=== PATIENT | female | born 1945 | race Caucasian/White ===

== ENCOUNTER 2020-02-29 22:46 | Inpatient (IN) | payer MEDICARE, BC ==
[~2020-02-29] VITALS: Ht 160 cm; Wt 61.9 kg
[2020-03-01] MEDS ORDERED: CYMBALTA60 MG ORAL (02:49)
[2020-03-01] MEDS ORDERED: BACTRIM DS TAB1 EAC1 ORAL (02:49)
[2020-03-01] MEDS ORDERED: NAMENDA10 MG ORAL (02:54)
[2020-03-01] MEDS ORDERED: ESTRACE1 MG ORAL (02:54)
[2020-03-01] MEDS ORDERED: FERROUS SULFAT325 MG ORAL (02:54)
[2020-03-01] MEDS ORDERED: IMITREX50 MG ORAL (02:54)
[2020-03-01] MEDS ORDERED: NORCO 10-325 T1 EACH ORAL (02:54)
[2020-03-01] MEDS ORDERED: ATIVAN1 MG ORAL (02:54)
[2020-03-01] MEDS ORDERED: FOLIC ACID1 MG ORAL (02:54)
[2020-03-01] MEDS ORDERED: MELATONIN 10 M1 EACH ORAL (02:54)
[2020-03-01] MEDS ORDERED: HYDROcodone/Acetamin 10/325 tab ORAL PRN (03:15)
[2020-03-01] MEDS ORDERED: SUMAtriptan 50mg tab ORAL PRN (03:15)
[2020-03-01 04:00] VITALS: BP 111/61
[2020-03-01] MEDS ORDERED: LORazepam 1mg tab ORAL ONE (04:00)
[2020-03-01] MEDS: Heparin 5000 units/ml inj SUBQ SCH ×3 (06:00→21:23)
[2020-03-01 07:42] LABS: BASOPHILS % (AUTO) 0.7 % (0.0-2.0); EOSINOPHILS % (AUTO) 1.2 % (0.0-3.0); HEMATOCRIT 37.2 % (37.0-47.0); HEMOGLOBIN 12.2 G/DL (12.0-16.0); LYMPHOCYTES % (AUTO) 29.8 % (20.0-45.0); MEAN CORPUSCULAR VOLUME 103 FL (80-99); MONOCYTES % (AUTO) 8.1 % (1.0-10.0); NEUTROPHILS % (AUTO) 60.3 % (45.0-75.0); PLATELET COUNT 341 K/UL (150-450); RED BLOOD COUNT 3.61 M/UL (4.20-5.40); RED CELL DISTRIBUTION WIDTH 14.9 % (11.6-14.8); WHITE BLOOD COUNT 13.8 K/UL (4.8-10.8)
[2020-03-01 07:57] LABS: ALANINE AMINOTRANSFERASE 24 U/L (12-78); ALBUMIN 3.3 G/DL (3.4-5.0); ALBUMIN/GLOBULIN RATIO 1.1 (1.0-2.7); ALKALINE PHOSPHATASE 63 U/L (46-116); ANION GAP 10 mmol/L (5-15); ASPARTATE AMINO TRANSFERASE 17 U/L (15-37); BILIRUBIN,TOTAL 0.2 MG/DL (0.2-1.0); BLOOD UREA NITROGEN 24 mg/dL (7-18); CALCIUM 8.9 MG/DL (8.5-10.1); CARBON DIOXIDE 28 MMOL/L (21-32); CHLORIDE 103 MMOL/L (98-107); CHOLESTEROL 247 MG/DL (< 200); CREATININE 1.4 MG/DL (0.55-1.30); HDL CHOLESTEROL 70 MG/DL (40-60); PHOSPHORUS 4.1 MG/DL (2.5-4.9); POTASSIUM 4.3 MMOL/L (3.5-5.1); SODIUM 140 MMOL/L (136-145); TRIGLYCERIDES 267 MG/DL (30-150)
[2020-03-01 08:00] VITALS: BP 142/56
[2020-03-01] MEDS: DULoxetine 30mg cap ORAL SCH ×2 (10:03→17:08)
[2020-03-01] MEDS: Memantine 10mg tab ORAL SCH ×2 (10:03→17:08)
[2020-03-01] MEDS: Aspirin Baby 81mg ORAL SCH (10:03)
[2020-03-01] MEDS: Bactrim-DS 1 tab ORAL SCH ×2 (10:03→21:02)
[2020-03-01 12:00] VITALS: BP 115/73
--- NOTE | 2020-03-01 12:12 | Diagnostic Imaging Report ---
EXAM: MRI MRI Brain no Contrast COMPARISON: None HISTORY: Headache. Right hand numbness and weakness. TECHNIQUE: MR scan of the brain includes sagittal T1, axial T1, T2, FLAIR, diffusion-weighted and gradient sequences. FINDINGS: There is no acute infarct, hemorrhage, mass effect or shift. Ventricles and cisterns appear unremarkable. Brainstem and posterior fossa appear unremarkable. The sella and parasellar regions are normal. Normal flow voids identified in the carotid siphons. Sinuses, mastoid air cells and bony calvarium are intact. IMPRESSION: NO ACUTE INTRACRANIAL ABNORMALITY.
--- NOTE | 2020-03-01 13:06 | Neurology Progress Note ---
Interim History Interim History Complaints: here for numbness right UE Interim History HPI 74 y/o F with PMHx of TIA, kidney stones, migraines, peripheral neuropathy(wrk up in progress) who was BIBA to [facility] due to right hand weakness to rule out new onset stroke. pt was at her hoe when she suddenly started to have numbness and weakness in her RUE. Pt had difficulty with picking up items and dropping items. No issues with language although. This has never happened before and she is not taking ASA. The symptoms improved after [address] was negative. She has No other numbness weakness or tingling in her body. No facial weakness no Difficulty swallowing No headache No nausea No vomiting. pt just had NCS adn EMG which did not show any neuropathy in the RUE or Cervical radiculoapthy. Past Medical History Active Ambulatory Problems Adxetaayn91/02/2019Age-related osteoporosis without current pathological fracture 07/12/2017 Shoulder pain 05/11/2018 Rib pain 05/11/2018 Seronegative rheumatoid arthritis 07/12/2017 Polyneuropathy 05/14/2018 Fibromyalgia 07/12/2017 Tachycardia 05/14/2018 No smoking drinking or drugs Allegies :Vand , compazine , levoquin, tetracycline Fam hx : RA No smoking drinking or drugs General: Lying in bed, well-nourished, well-developed Head and neck: Normocephalic,atraumatic. Supple General: Lying in bed, well-nourished, well-developed Head and neck: Normocephalic,atraumatic. Supple+ epistaxis CARDIOVASCULAR: pedal pulses presentLUNGS: non labored breathing ABDOMEN: Soft EXTREMITIES: No cyanosis SKIN: No rashes General neuro exam Mental statusMemory: nl repitition, short-term recall, able to give full history Language: receptive and expressive language intactSpontanous speech intact , able to name objects, comprehends commands, able to repeat no if ands or but, able to read with good comprehension Alert and oriented x3.Language Cranial nerve 2: Clear visual acuity. Cranial nerves 3, 4, 6: Extraocular muscles intact. No Horizontal Nystagmus or vertical nystagmus Cranial nerve 5: Sensation normal bilaterally. Normal jaw strength. Cranial nerve 7: Normal eyebrow raise. Smile normal. CN8-Able to hear on whisper test B/L Cranial nerves 9 and 10. Normal palate elevation. Positive for cough reflex.Cranial nerve 11: Normal elevation of shoulders. Good strength and range of motion Neck: Able to move the head to the left and right.Cranial nerve 12: No deviation of tongue. No fasciculations. Pronator drift negative/ Fine finger movements intact Tone: No rigidity or spasticity noted Strength is 5/5 in upper Proximal and distal flexors and extensors and lower extremities. Normal hand child attendant bilaterally. Reflexes:Biceps, brachioradiali 2+ and symmetric Patellar 2+ and symmetric Babinski downgoing b/l No hoffmens Cerebellum Fine finger to nose no Dysmetria Sensation: sensation intact throughout to soft touch, pinprickdecreased in 1st MTP b/l , nml at ankles Romberg deferred Gait narrow can tip toe and tandem at least 3 steps Review of Systems Neuro Review of Systems CONSTITUTIONAL: No weight loss, fever, chills, weakness or fatigue. HEENT: Eyes: No visual loss, blurred vision, double vision or yellow sclerae. Ears, Nose, Throat: No hearing loss, sneezing, congestion, runny nose or sore throat. SKIN: No rash or itching. CARDIOVASCULAR: No chest pain, chest pressure or chest discomfort. No palpitations or edema. RESPIRATORY: No shortness of breath, cough or sputum. GASTROINTESTINAL: No anorexia, nausea, vomiting or diarrhea. No abdominal pain or blood. NEUROLOGICAL: + for right hand weakness and numbness MUSCULOSKELETAL: No muscle, back pain, joint pain or stiffness. HEMATOLOGIC: No anemia, bleeding or bruising. LYMPHATICS: No enlarged nodes. No history of splenectomy. PSYCHIATRIC: No history of depression or anxiety. ENDOCRINOLOGIC: No reports of sweating, cold or heat intolerance. No polyuria or polydipsia. ALLERGIES: No history of asthma, hives, eczema or rhinitis. All Systems: reviewed and negative except above Objective Physical Exam Last Vital Signs Date Time Temp Pulse Resp B/P (MAP) Pulse Ox O2 Delivery O2 Flow Rate FiO2 03/01/20 12:00 97.7 84 20 115/73 (87) 95 03/01/20 09:00 Room Air Laboratory Tests Test 03/01/20 06:28 White Blood Count 13.8 K/UL (4.8-10.8) H Red Blood Count 3.61 M/UL (4.20-5.40) L Hemoglobin 12.2 G/DL (12.0-16.0) Hematocrit 37.2 % (37.0-47.0) Mean Corpuscular Volume 103 FL (80-99) H Mean Corpuscular Hemoglobin 33.7 PG (27.0-31.0) H Mean Corpuscular Hemoglobin Concent 32.7 G/DL (32.0-36.0) Red Cell Distribution Width 14.9 % (11.6-14.8) H Platelet Count 341 K/UL (150-450) Mean Platelet Volume 6.6 FL (6.5-10.1) Neutrophils (%) (Auto) 60.3 % (45.0-75.0) Lymphocytes (%) (Auto) 29.8 % (20.0-45.0) Monocytes (%) (Auto) 8.1 % (1.0-10.0) Eosinophils (%) (Auto) 1.2 % (0.0-3.0) Basophils (%) (Auto) 0.7 % (0.0-2.0) Sodium Level 140 MMOL/L (136-145) Potassium Level 4.3 MMOL/L (3.5-5.1) Chloride Level 103 MMOL/L (98-107) Carbon Dioxide Level 28 MMOL/L (21-32) Anion Gap 10 mmol/L (5-15) Blood Urea Nitrogen 24 mg/dL (7-18) H Creatinine 1.4 MG/DL (0.55-1.30) H Estimat Glomerular Filtration Rate 36.9 mL/min (>60) Glucose Level 122 MG/DL (74-106) H Calcium Level 8.9 MG/DL (8.5-10.1) Phosphorus Level 4.1 MG/DL (2.5-4.9) Magnesium Level 2.4 MG/DL (1.8-2.4) Total Bilirubin 0.2 MG/DL (0.2-1.0) Aspartate Amino Transf (AST/SGOT) 17 U/L (15-37) Alanine Aminotransferase (ALT/SGPT) 24 U/L (12-78) Alkaline Phosphatase 63 U/L (46-116) Troponin I 0.004 ng/mL (0.000-0.056) Total Protein 6.2 G/DL (6.4-8.2) L Albumin 3.3 G/DL (3.4-5.0) L Globulin 2.9 g/dL Albumin/Globulin Ratio 1.1 (1.0-2.7) Triglycerides Level 267 MG/DL (30-150) H Cholesterol Level 247 MG/DL (< 200) H LDL Cholesterol 124 mg/dL (<100) H HDL Cholesterol 70 MG/DL (40-60) H Cholesterol/HDL Ratio 3.5 (3.3-4.4) EENT: other Neurologic Exam Mental Status: awake, alert, oriented x4, normal cognition, good mathematical skills, normal recent memory, normal remote memory, preserved visuospatial function Speech: normal speech, no dysarthia Language: normal language, no aphasia Cranial Nerve II: fundus normal, visual bowman, no papilledema Cranial Nerves III, IV, : PERRLA - did not assess reactivity to light , EOMI, pupils Cranial Nerve V: normal facial sensations, temporales function normal, masseters function normal, pterygoids function normal Cranial Nerve VII: no facial asymmetry, normal facial expressions Cranial Nerve VIII: normal hearing, no nystagmus Cranial Nerve IX: normal palate elevation, gag response Cranial Nerve X: no voice hoarseness Cranial Nerve XI: SCM symmetric, trapezii function normal Cranial Nerve XII: tongue midline, no tongue atrophy/fasciculations Motor System: normal muscle tone, strength 5/5, no involuntary movement, no muscle wasting Sensory: normal pinprick, normal light touch, normal position sense, normal gr aphesthesia, other - decreased proprioception in the 1st MTPs b/l Coordination: normal finger to nose bilaterally, normal heel to fitzgerald bilaterally, negative Romberg test Deep Tendon Reflexes: 2+ bicep (L), 2+ bicep (R), 2+ tricep (L), 2+ tricep (R), 2+ brachioradialis (L), 2+ brachioradialis (R), 2+ knee (L), 2+ knee (R), 2+ ankle (L), 2+ ankle (R) Stance: normal Gait: stable, normal regular, heel + toe gait Impression/Recommendations Diagnostic Impression MRI brain NML Carotid US some arthrosclerosis less than 50 percent Recommendations Neuro exam shows decreased proprioception in b/l 1st MTPs. MRI is negative and carotid U/S of carotids showed some arthrosclerosis. #Pyelonephritis -resolved #History of Rheumatoid Arthritis #Rheumatoid arthritis #Polymyalgia Rheumatica #Insomnia #RLS likely 2/2 Iron deficiency as Iron is 51 which is lower end of NML #rule out neuropathy #migraines #rule out peripheral neuropathy # RUE numbness + weakness lasted about 2 hours likely 2/2 TIA. unlikely to be C radic as NCS and EMG were NML last week. DDx also includes seizure however less liekly # hx of TIA plan ziopatch as outpt to rule out arrhythmia Permissive HTN for 24 hours after onset, goal SBP < 220 ASA 81mg daily LDL goal below 70 atorvaStatin 40mg BP less than 140/90 after 24 hours Control glucose EEG as outpt MRA head and neck w/out contrast can be done as oupt I reviewed radiology images This was a complex neurologic consult. It entailed a detailed history, a complete and detailed examination, and decision making of high complexity. Erika Montejo M.D. Mar 01, 2020 13:06
--- NOTE | 2020-03-01 13:09 | Consultation ---
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 Her symptoms were improving when she presented to [place]. Her initial CT of head was negative. She is transferred to [facility] for further management. Allergies: Coded Allergies: NALOXONE (Verified Allergy, Severe, ANAPHYLAXIS, 03/01/20) ALENDRONATE SODIUM (Verified Allergy, Unknown, HIVES, 03/01/20) LEVOFLOXACIN (Verified Allergy, Unknown, 03/01/20) PENTAZOCINE (Verified Allergy, Unknown, 03/01/20) PROCHLORPERAZINE (Verified Allergy, Unknown, 03/01/20) TETRACYCLINE (Verified Allergy, Unknown, 03/01/20) VANCOMYCIN (Verified Allergy, Unknown, 03/01/20) Medication History Scheduled Duloxetine Hcl* (Cymbalta*), 60 MG ORAL BID, (Reported) Estradiol* (Estrace*), 0.6 MG ORAL DAILY, (Reported) Ferrous Sulfate* (Ferrous Sulfate*), 325 MG ORAL DAILY, (Reported) Folic Acid* (Folic Acid*), 1 MG ORAL DAILY, (Reported) Lorazepam* (Ativan*), 1.5 MG ORAL BEDTIME, (Reported) Memantine Hcl* (Namenda*), 10 MG ORAL TWICE A DAY, (Reported) Sumatriptan Succinate* (Imitrex*), 60 MG ORAL DAILY PRN MIGRAINE, (Reported) Trimethoprim/Sulfamethoxazole 160/800* (Bactrim Ds Tablet*), 1 TAB ORAL TWICE A DAY, (Reported) Scheduled PRN Hydrocodone Bit/Acetaminophen 10-325* ([place] 10-325*), 1 TAB ORAL Q6H PRN for For Pain, (Reported) Melatonin (Melatonin 10 Mg Tablet), 1 TAB ORAL BEDTIME PRN for Insomnia, (Reported) Patient History Healthcare decision maker Resuscitation status Advanced Directive on File Past Medical/Surgical History Past Medical/Surgical History: (1) Migraine Review of Systems All Other Systems: negative except mentioned in HPI Physical Exam General Appearance: WD/WN, no apparent distress, alert Lines, tubes and drains: peripheral HEENT: normocephalic, atraumatic, anicteric Neck: non-tender, normal alignment, supple, normal inspection Respiratory/Chest: chest wall non-tender, lungs clear, normal breath sounds Cardiovascular/Chest: normal peripheral pulses, normal rate Abdomen: normal bowel sounds, non tender, soft, no organomegaly Genitourinary/Rectal: normal genital exam Extremities: normal range of motion, normal inspection Skin Exam: normal pigmentation 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 Last 24 Hour Vital Signs Date Time Temp Pulse Resp B/P (MAP) Pulse Ox O2 Delivery O2 Flow Rate FiO2 03/01/20 12:00 97.7 84 20 115/73 (87) 95 03/01/20 09:00 Room Air 03/01/20 08:00 98.2 76 18 142/56 (84) 94 03/01/20 08:00 81 03/01/20 04:00 97.7 72 18 111/61 (78) 95 03/01/20 04:00 69 03/01/20 04:00 70 16 108/62 100 03/01/20 03:12 Room Air 03/01/20 02:55 76 Intake and Output 02/29/20 03/01/20 19:00 07:00 Intake Total 360 ml Balance 360 ml Intake Oral 360 ml # Voids 1 Laboratory Tests Test 03/01/20 06:28 White Blood Count 13.8 K/UL (4.8-10.8) H Red Blood Count 3.61 M/UL (4.20-5.40) L Hemoglobin 12.2 G/DL (12.0-16.0) Hematocrit 37.2 % (37.0-47.0) Mean Corpuscular Volume 103 FL (80-99) H Mean Corpuscular Hemoglobin 33.7 PG (27.0-31.0) H Mean Corpuscular Hemoglobin Concent 32.7 G/DL (32.0-36.0) Red Cell Distribution Width 14.9 % (11.6-14.8) H Platelet Count 341 K/UL (150-450) Mean Platelet Volume 6.6 FL (6.5-10.1) Neutrophils (%) (Auto) 60.3 % (45.0-75.0) Lymphocytes (%) (Auto) 29.8 % (20.0-45.0) Monocytes (%) (Auto) 8.1 % (1.0-10.0) Eosinophils (%) (Auto) 1.2 % (0.0-3.0) Basophils (%) (Auto) 0.7 % (0.0-2.0) Sodium Level 140 MMOL/L (136-145) Potassium Level 4.3 MMOL/L (3.5-5.1) Chloride Level 103 MMOL/L (98-107) Carbon Dioxide Level 28 MMOL/L (21-32) Anion Gap 10 mmol/L (5-15) Blood Urea Nitrogen 24 mg/dL (7-18) H Creatinine 1.4 MG/DL (0.55-1.30) H Estimat Glomerular Filtration Rate 36.9 mL/min (>60) Glucose Level 122 MG/DL (74-106) H Calcium Level 8.9 MG/DL (8.5-10.1) Phosphorus Level 4.1 MG/DL (2.5-4.9) Magnesium Level 2.4 MG/DL (1.8-2.4) Total Bilirubin 0.2 MG/DL (0.2-1.0) Aspartate Amino Transf (AST/SGOT) 17 U/L (15-37) Alanine Aminotransferase (ALT/SGPT) 24 U/L (12-78) Alkaline Phosphatase 63 U/L (46-116) Troponin I 0.004 ng/mL (0.000-0.056) Total Protein 6.2 G/DL (6.4-8.2) L Albumin 3.3 G/DL (3.4-5.0) L Globulin 2.9 g/dL Albumin/Globulin Ratio 1.1 (1.0-2.7) Triglycerides Level 267 MG/DL (30-150) H Cholesterol Level 247 MG/DL (< 200) H LDL Cholesterol 124 mg/dL (<100) H HDL Cholesterol 70 MG/DL (40-60) H Cholesterol/HDL Ratio 3.5 (3.3-4.4) Height (Feet): 5 Height (Inches): 3.00 Weight (Pounds): 138 Medications Current Medications Medications (Trade) Dose Ordered Sig/Vish Route PRN Reason Start Time Stop Time Status Last Admin Dose Admin Acetaminophen (Tylenol) 650 mg Q6H PRN ORAL Mild Pain (Pain Scale 1-3) 03/01/20 03:15 03/31/20 03:14 Acetaminophen/ Hydrocodone Bitart ([place] 10) 1 tab Q6H PRN ORAL For Pain 03/01/20 03:15 03/08/20 03:14 Aspirin (ASA) 81 mg DAILY ORAL 03/01/20 09:00 04/15/20 08:59 03/01/20 10:03 Duloxetine HCl (Cymbalta) 60 mg BID ORAL 03/01/20 09:00 05/30/20 08:59 03/01/20 10:03 Ferrous Sulfate (Feosol) 325 mg DAILY ORAL 03/01/20 09:00 05/30/20 08:59 03/01/20 10:03 Folic Acid (Folate) 1 mg DAILY ORAL 03/01/20 09:00 03/31/20 08:59 03/01/20 10:03 Heparin Sodium (Porcine) (Heparin 5000 units/ml) 5,000 units EVERY 8 HOURS SUBQ 03/01/20 06:00 04/15/20 05:59 Lorazepam (Ativan) 1.5 mg BEDTIME ORAL 03/01/20 21:00 03/08/20 20:59 Memantine (Namenda) 10 mg TWICE A DAY ORAL 03/01/20 09:00 03/31/20 08:59 03/01/20 10:03 Ondansetron HCl (Zofran) 4 mg Q6H PRN ORAL Nausea & Vomiting 03/01/20 03:15 03/31/20 03:14 Sumatriptan Succinate (Imitrex) 60 mg Q6H PRN ORAL For Headache 03/01/20 03:15 03/31/20 03:14 Trimethoprim/ Sulfamethoxazole (Bactrim-DS) 1 tab Q12HR ORAL 03/01/20 09:00 03/06/20 23:59 03/01/20 10:03 Assessment/Plan Problem List: (1) Acute CVA (cerebrovascular accident) ICD Codes: I63.9 - Cerebral infarction, unspecified SNOMED: 004802741, 765399044 (2) Migraine ICD Codes: G43.909 - Migraine, unspecified, not intractable, without status migrainosus SNOMED: 69637569 (3) TIA (transient ischemic attack) ICD Codes: G45.9 - Transient cerebral ischemic attack, unspecified SNOMED: 767439270 Assessment/Plan: MRI of brain Echocardiogram Carotid artery US symptomatic treatment neuro evaluation dvt prophylaxis Jony Huerta MD Mar 01, 2020 13:09
[2020-03-01 16:03] VITALS: BP 133/52
--- NOTE | 2020-03-01 16:56 | Diagnostic Imaging Report ---
Indication: Transient ischemic attack TECHNIQUE: Duplex extracranial carotid and vertebral artery sonography performed with color flow imaging and waveform analysis. COMPARISON: None FINDINGS: Right carotid: Mild atherosclerotic plaquing is noted. Visualized portions of the common carotid and internal carotid arteries are patent. Obtained peak systolic velocities of 63 cm/s in the CCA; 50 cm/s in the proximal ICA; 73 cm/s in the distal ICA. ICA/CCA ratio 1.3 Left carotid: Mild atherosclerotic plaquing is noted. Visualized portions of the common and internal carotid arteries are patent. Obtained peak systolic velocities of 53 cm/s in the CCA; 70 cm/s in the proximal ICA; 63 cm/s in the distal ICA. ICA/CCA ratio 1.4 Vertebral arteries: Antegrade flow demonstrated within both vertebral arteries. IMPRESSION: Atherosclerotic calcifications. No hemodynamically significant extracranial carotid artery stenosis identified (<50% stenosis). Antegrade flow within both vertebral arteries. This report utilizes carotid stenosis grading criteria based on the meeting of Society of radiologists in ultrasound consensus conference, February 2002.
--- NOTE | 2020-03-01 17:12 | History & Physical ---
History and Physical History & Physicial Yoni Cohen MD Mar 01, 2020 17:12
[2020-03-01] MEDS ORDERED: SUMAtriptan 6mg/0.5ml Inj SUBQ SCH (18:00)
[2020-03-01] MEDS ORDERED: D5 1/2NS w/KCl 20mEq 1,000 ML IV SCH (18:30)
[2020-03-01] MEDS ORDERED: PREDNISONE2.5 MG ORAL (18:48)
[2020-03-01 20:00] VITALS: BP 128/60
--- NOTE | 2020-03-01 20:00 | History and Physical Report ---
DATE OF ADMISSION: 03/01/2020 CHIEF COMPLAINT: Right upper extremity weakness. 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 Symptoms started around 5:45 p.m. last night and was unstable to hold items. Denies any other neurological symptoms. Denies any speech impairment. Denies any double vision. Denies any fever or chills. Denies any fall or head trauma. Shortly after initial evaluation, the patient was transferred to the [facility] with right upper extremity weakness, possible TIA versus CVA versus migrainous headache. PAST MEDICAL HISTORY/PAST SURGICAL HISTORY: As above. History of neuropathy of lower extremity, migraine headaches. Denies any history of diabetes, high blood pressure, or coronary disease. MEDICATIONS AT HOME: Significant for Cymbalta, estradiol, iron sulfate, folic acid, [place], lorazepam, melatonin, Namenda, Imitrex, and Bactrim. ALLERGIES: To Fosamax, Levaquin, naloxone, pentazocine, , tetracycline, and vancomycin. SOCIAL HISTORY: The patient denies any smoking, alcohol, or drugs. FAMILY HISTORY: Noncontributory. REVIEW OF SYSTEMS: Mostly as above. Denies any dysuria, frequency, or hematuria. Denies any fever, chills, sore throat, cough, or wheezing. Denies any chest pain or palpitation. Complained about headache. Denies any loss of consciousness. Complained about abdominal discomfort. Denies any double vision. PHYSICAL EXAMINATION: VITAL SIGNS: At the [facility] ER, blood pressure 118/58, pulse of 72, respiration 19, temperature 97.7. GENERAL: The patient is awake, responsive, and in no acute distress. HEAD AND NECK: Pupils are equal and reactive to light. Extraocular movements intact. Neck was supple. No JVD. LUNGS: Good air entry. No wheezing or rales. HEART: S1, S2. Regular rhythm. No murmur or gallops. ABDOMEN: Soft, nondistended. Positive bowel sounds. Mild epigastric tenderness on deep palpation. EXTREMITIES: No cyanosis, clubbing, or edema. NEUROLOGIC: Cranial nerves II through XII grossly intact. Motor is 5/5 in all extremities. Gait was not assessed due to the patient's status. RECTAL: Refused and deferred. GENITOURINARY: Refused and deferred. PSYCHIATRIC: Mood and affect is intact. LABORATORY DATA: Laboratory on admission from the emergency department, WBC of 12, hemoglobin of 11, hematocrit 37, platelet is 388,000. BUN is 26, creatinine 1.22, GFR is 44, sodium 139, potassium 4.7, chloride 101, bicarb 27, glucose is 121. PT of 27, INR 1.0. First troponin 0.03. The patient had a MRI of the brain at [facility]; no acute intracranial abnormality. Carotid duplex was noted to be atherosclerotic calcification. No hemodynamically significant intracranial or carotid artery stenosis. Antegrade flow within both vertebral artery was noted. The patient's noted laboratory today at [facility], BUN is 24, creatinine 1.4, cholesterol is 247, triglycerides 267, LDL is 124, HDL is 70. EKG is normal sinus rhythm, ventricular rate of 72. No ST elevation. Q-wave was noted in leads II, III, and aVF. ASSESSMENT: 1. Tingling and numbness in the right upper extremity, possible due to the neuropathy versus migrainous headaches. 2. History of neuropathy of lower extremity. 3. Migraine headaches. 4. Dyslipidemia. PLAN: Admit the patient to monitored unit. We will follow up with neurologist's consultation with Dr. Nathan Montejo, and Dr. Huerta from Pulmonary/Critical Care. Monitor laboratory. PT and OT evaluation. Code status is full code. DVT prophylaxis, heparin subcu. Yoni Cohen M.D. DR: Ema JOB#: [id number] CC:
[2020-03-01] MEDS ORDERED: LORazepam 1mg tab ORAL SCH (21:00)
[2020-03-01] MEDS ORDERED: Atorvastatin 20mg tab ORAL SCH ×4 (21:00)
[2020-03-02] VITALS: BP 130/65
[2020-03-02 04:00] VITALS: BP 142/60
[2020-03-02] MEDS: Heparin 5000 units/ml inj SUBQ SCH (05:58)
[2020-03-02 08:00] VITALS: BP 108/59
[2020-03-02 08:23] LABS: CREATININE 1.2 MG/DL (0.55-1.30); POTASSIUM 4.4 MMOL/L (3.5-5.1)
[2020-03-02] MEDS: DULoxetine 30mg cap ORAL SCH (09:06)
[2020-03-02] MEDS: Memantine 10mg tab ORAL SCH (09:09)
[2020-03-02] MEDS: Aspirin Baby 81mg ORAL SCH (09:10)
[2020-03-02] MEDS: Bactrim-DS 1 tab ORAL SCH (09:10)
--- NOTE | 2020-03-02 10:33 | Pulmonology Progress Note ---
Subjective Allergies: Coded Allergies: NALOXONE (Verified Allergy, Severe, ANAPHYLAXIS, 03/01/20) ALENDRONATE SODIUM (Verified Allergy, Unknown, HIVES, 03/01/20) LEVOFLOXACIN (Verified Allergy, Unknown, 03/01/20) PENTAZOCINE (Verified Allergy, Unknown, 03/01/20) PROCHLORPERAZINE (Verified Allergy, Unknown, 03/01/20) TETRACYCLINE (Verified Allergy, Unknown, 03/01/20) VANCOMYCIN (Verified Allergy, Unknown, 03/01/20) All Systems: reviewed and negative except above Subjective no further R hand weakness no CP, SOB, dizziness, new focal deficit creat down to normal Objective Last 24 Hour Vital Signs Date Time Temp Pulse Resp B/P (MAP) Pulse Ox O2 Delivery O2 Flow Rate FiO2 03/02/20 09:00 Room Air 03/02/20 08:00 108 03/02/20 08:00 97.9 90 20 108/59 (75) 96 03/02/20 04:00 83 03/02/20 04:00 98.7 92 20 142/60 (87) 94 03/02/20 00:00 85 03/02/20 00:00 98.5 88 18 130/65 (86) 97 03/01/20 21:33 68 18 118/65 98 03/01/20 21:03 88 20 125/62 97 03/01/20 21:00 Room Air 03/01/20 20:00 97.8 78 18 128/60 (82) 95 03/01/20 20:00 77 03/01/20 16:03 97.5 81 18 133/52 (79) 97 03/01/20 16:00 86 03/01/20 12:00 80 03/01/20 12:00 97.7 84 20 115/73 (87) 95 Intake and Output 03/01/20 03/02/20 19:00 07:00 Intake Total 480 ml 400 ml Balance 480 ml 400 ml Intake Oral 480 ml 400 ml # Voids 3 3 General Appearance: WD/WN, no acute distress HEENT: normocephalic, atraumatic, anicteric Respiratory: lungs clear Cardiovascular: normal peripheral pulses, normal rate, regular rhythm Abdomen: soft, non tender, non distended Extremities: no edema, pedal pulses normal 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: 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 II-XII grossly normal, no motor/sensory deficits, alert, oriented x 3, responsive Musculoskeletal: normal muscle bulk Laboratory Tests 03/02/20 07:30: Sodium Level 138, Potassium Level 4.4, Chloride Level 104, Carbon Dioxide Level 26, Anion Gap 8, Blood Urea Nitrogen 15, Creatinine 1.2, Estimat Glomerular Filtration Rate 44.0, Glucose Level 100, Calcium Level 9.0, Magnesium Level 2.3 Current Medications Medications (Trade) Dose Ordered Sig/Vish Route PRN Reason Start Time Stop Time Status Last Admin Dose Admin Acetaminophen (Tylenol) 650 mg Q6H PRN ORAL Mild Pain (Pain Scale 1-3) 03/01/20 03:15 03/31/20 03:14 Acetaminophen/ Hydrocodone Bitart ([place] 10/325) 1 tab Q6H PRN ORAL For Pain 03/01/20 03:15 03/08/20 03:14 Aspirin (ASA) 81 mg DAILY ORAL 03/01/20 09:00 04/15/20 08:59 03/02/20 09:10 Atorvastatin Calcium (Lipitor) 20 mg BEDTIME ORAL 03/01/20 21:00 05/30/20 20:59 03/01/20 21:02 Duloxetine HCl (Cymbalta) 60 mg BID ORAL 03/01/20 09:00 05/30/20 08:59 03/02/20 09:06 Ferrous Sulfate (Feosol) 325 mg DAILY ORAL 03/01/20 09:00 05/30/20 08:59 03/02/20 09:10 Folic Acid (Folate) 1 mg DAILY ORAL 03/01/20 09:00 03/31/20 08:59 03/02/20 09:09 Heparin Sodium (Porcine) (Heparin 5000 units/ml) 5,000 units EVERY 8 HOURS SUBQ 03/01/20 06:00 04/15/20 05:59 03/02/20 05:58 Lorazepam (Ativan) 1.5 mg BEDTIME ORAL 03/01/20 21:00 03/08/20 20:59 03/01/20 21:03 Memantine (Namenda) 10 mg TWICE A DAY ORAL 03/01/20 09:00 03/31/20 08:59 03/02/20 09:09 Ondansetron HCl (Zofran) 4 mg Q6H PRN ORAL Nausea & Vomiting 03/01/20 03:15 03/31/20 03:14 Prednisone (predniSONE) 4 mg DAILY ORAL 03/01/20 21:00 03/31/20 20:59 03/02/20 09:06 Sumatriptan Succinate (Imitrex) 60 mg Q6H PRN ORAL For Headache 03/01/20 03:15 03/31/20 03:14 Trimethoprim/ Sulfamethoxazole (Bactrim-DS) 1 tab Q12HR ORAL 03/01/20 09:00 03/06/20 23:59 03/02/20 09:10 Assessment/Plan Assessment/Plan ASSESSMENT Acute right hand weakness, rule out acute CVA- resolved Likely TIA Mixed hyperlipidemia Migraine headache Polymyalgia rheumatica History of breast cancer, status post right mastectomy LAVERNE -resolved PLAN OF CARE tele all imaging noted - no acute CVA neuro eval appreciated , likely TIA NCS and EMG done no neuropathy RUE, no cervical radiculopathy Carotid duplex with atherosclerotic calcification Echo with pEF continue ASA and statin permissive BP, BP stable lipid panel with mixed hyperlipidemia elevated ; goal to keep LDL below 70 educated on low-fat low-cholesterol diet EEG was recommended by neurologist as outpatient along with MRA of head and neck DVT prophylaxis continue home meds PT/OT creat down to normal mild leuk 03/01, no fevers, ? possibly due to Prednisone she is on, check CBC in am dc plan case discussed and evaluated by supervising physician Soo Leiva NP Mar 02, 2020 10:33
[2020-03-02] MEDS ORDERED: ASPIRIN81 MG ORAL (11:32)
[2020-03-02] MEDS ORDERED: LIPITOR20 MG ORAL (11:32)
[2020-03-02 12:00] VITALS: BP 110/61
--- NOTE | 2020-03-02 20:44 | Discharge Summary ---
Discharge Summary Hospital Course Date of Admission Mar 01, 2020 at 01:59 Date of Discharge Mar 02, 2020 at 13:05 Admitting Diagnosis HPI Cassie Aguilar is a 74 year old female who was admitted on Mar 01, 2020 at 01:59 for Cerebrovascular Accident Vs Transient Ischemic Hospital Course Discharge Discharge Vital Signs Last Vital Signs Date Time Temp Pulse Resp B/P (MAP) Pulse Ox O2 Delivery O2 Flow Rate FiO2 03/02/20 12:00 99 03/02/20 12:00 97.8 20 110/61 (77) 95 03/02/20 09:00 Room Air Discharge Disposition Patient was discharged to Yoni Cohen MD Mar 02, 2020 20:44
--- NOTE | 2020-03-02 22:00 | Discharge Summary ---
DATE OF ADMISSION: 03/01/2020 DATE OF DISCHARGE: 03/02/2020 This is a 73-year-old very delightful female with past medical history significant for neuropathy of the lower extremities, history of migraine headaches, who presented initially to [facility] Emergency Room complaining about right hand tingling, numbness, and weakness. Shortly after initial evaluation, the patient was transferred to [facility] for right upper extremity weakness, possible TIA versus CVA versus seizure disorder. Throughout the hospital course, the patient was consulted by Dr. Nathan Montejo from Neurology and Dr. Huerta from Pulmonary Critical Care. The patient was noted to have worsening renal function dehydration. IV hydration was started. The patient underwent an MRI of the brain, which noted no acute intracranial abnormality, and carotid duplex, atherosclerosis calcification. No hemodynamically significant extracranial carotid artery stenosis identified, antegrade flow between both vertebral artery. The patient's status improved and subsequently was discharged home to be followed up with Dr. Montejo as an outpatient. Continue to have ZIO patch placement as an outpatient. Discussed with Dr. Montejo extensively with regard to the followup as an outpatient. FINAL DIAGNOSES: 1. Right upper extremity pain and numbness, possible due to migraine headache. 2. History of neuropathy of lower extremity. 3. Migraine headache. 4. Dyslipidemia. MEDICATIONS ON DISCHARGE: Continue discharge medication list. ACTIVITY: As tolerated. DIET: Would be regular diet. The patient was advised to follow up with Dr. Dr. Montejo within 1 to 2 weeks. Yoni Cohen M.D. DR: TUYET JOB#: [id number] CC:
--- NOTE | 2020-03-04 15:11 | Discharge Summary ---
Discharge Summary Discharge Summary _ DISCHARGE SUMMARY ( please refer to dc summary as dictated by Dr Cohen) FINAL DIAGNOSES Acute right hand weakness, rule out acute CVA- resolved Likely TIA Mixed hyperlipidemia Migraine headache Polymyalgia rheumatica History of breast cancer, status post right mastectomy LAVERNE -resolved Soo Leiva NP Mar 04, 2020 15:11
== END 2020-03-02 13:05 | disposition home or self-care (01) | DRG 103 ==
LOC: 2E 03-01 01:59
DX: G43.909 Migraine, unspecified, not intractable, without status migrainosus (principal); G45.9 Transient cerebral ischemic attack, unspecified; N17.9 Acute kidney failure, unspecified; N12 Tubulo-interstitial nephritis, not specified as acute or chronic; G56.91 Unspecified mononeuropathy of right upper limb; E78.5 Hyperlipidemia, unspecified; M06.9 Rheumatoid arthritis, unspecified; E61.1 Iron deficiency; M35.3 Polymyalgia rheumatica; E78.2 Mixed hyperlipidemia; Z88.1 Allergy status to other antibiotic agents; Z88.8 Allergy status to other drugs, medicaments and biological substances; E86.0 Dehydration; R20.0 Anesthesia of skin; Z85.3 Personal history of malignant neoplasm of breast; Z90.11 Acquired absence of right breast and nipple; G47.00 Insomnia, unspecified
CPT/HCPCS: 36415; 70551; 80048; 80053; 80061; 83735; 84100; 84484; 85025; 93306; 93880